=== PATIENT | female | born 1955 | race Caucasian/White ===

== ENCOUNTER 2022-03-07 06:57 | Day surgery (SDC) | payer MEDICARE, OTHER ==
[~2022-03-07] VITALS: Ht 147.3 cm; Wt 57.6 kg
[~2022-03-07 06:57] MED LIST: STELARA SC
[2022-03-07 08:53] VITALS: BP 108/72
== END 2022-03-07 09:04 | disposition home or self-care (01) ==
LOC: ENDO 06:57 → ORM 08:00 → ENDO 09:04
PROVIDERS: ATTEND Internal Medicine Gastroenterology
PROC: 0DB98ZX Excision of Duodenum, Via Natural or Artificial Opening Endoscopic, Diagnostic (ICD-10-PCS; principal; 2022-03-07)
PROC: 0DB78ZX Excision of Stomach, Pylorus, Via Natural or Artificial Opening Endoscopic, Diagnostic (ICD-10-PCS; 2022-03-07)
PROC: 0DBK8ZX Excision of Ascending Colon, Via Natural or Artificial Opening Endoscopic, Diagnostic (ICD-10-PCS; 2022-03-07)
PROC: 0DBL8ZX Excision of Transverse Colon, Via Natural or Artificial Opening Endoscopic, Diagnostic (ICD-10-PCS; 2022-03-07)
PROC: 0DBN8ZX Excision of Sigmoid Colon, Via Natural or Artificial Opening Endoscopic, Diagnostic (ICD-10-PCS; 2022-03-07)
PROC: 0DBP8ZX Excision of Rectum, Via Natural or Artificial Opening Endoscopic, Diagnostic (ICD-10-PCS; 2022-03-07)
PROC: 0DBM8ZX Excision of Descending Colon, Via Natural or Artificial Opening Endoscopic, Diagnostic (ICD-10-PCS; 2022-03-07)
PROC: 0DBH8ZX Excision of Cecum, Via Natural or Artificial Opening Endoscopic, Diagnostic (ICD-10-PCS; 2022-03-07)
DX: K50.10 Crohn's disease of large intestine without complications (principal); K63.5 Polyp of colon; K29.50 Unspecified chronic gastritis without bleeding; R76.8 Other specified abnormal immunological findings in serum; Z79.899 Other long term (current) drug therapy; Z90.49 Acquired absence of other specified parts of digestive tract

== ENCOUNTER 2022-06-02 11:45 | Inpatient (IN) | payer MEDICARE, OTHER ==
[2022-06-02] VITALS (18 sets, daily range): BP systolic 101–124; BP diastolic 53–70
[~2022-06-02] VITALS: Ht 147.3 cm; Wt 58.0 kg
[2022-06-02 14:18] LABS: BASO% 0.2 % (0-3); EOS% 2.3 % (0-8); HEMOGLOBIN 14.1 g/dl (12.0-16.0); IMMATURE GRANULOCYTES 0.5 % (0.0-5.0); LYMPH% 19.7 % (15-41); MEAN CELL VOLUME 92.9 fL CALC (80.0-100.0); MEAN CORPUSCULAR HGB 31.2 pG CALC (26.0-32.0); MEAN CORPUSCULAR HGB CONC 33.6 g/dL CAL (32.0-36.0); MONO% 8.3 % (2-13); NEUT# 3.01 thou/uL (2.00-7.15); RED BLOOD COUNT 4.52 mill/uL (4.20-5.60)
[2022-06-02 14:24] LABS: ALBUMIN 3.8 g/dL (3.2-5.0); ALKALINE PHOSPHATASE 90 u/l (38-126); ANION GAP 9 (6-22 (CALC)); BILIRUBIN, TOTAL 0.6 mg/dL (0.0-1.4); BUN 13 mg/dL (8-23); BUN/CREATININE RATIO 18 (12-20 (CALC)); CARBON DIOXIDE 24 mmol/l (22-30); CHLORIDE 110 mmol/l (95-108); CREATININE 0.7 mg/dL (0.5-1.0); GFR FOR AFR.AMER. > 60 ML/MIN (>=60 (CALC)); GFR OTHER RACES > 60 ML/MIN (>=60 (CALC)); LIPASE 112 u/l (23-300); SGOT/AST 25 u/l (9-36); SODIUM 138 mmol/l (137-146); TOTAL PROTEIN 6.9 g/dL (6.3-8.2)
[2022-06-02 16:46] LABS: URINE BILIRUBIN - DIPSTICK NEGATIVE (NEGATIVE); URINE BLOOD DIPSTICK TRACE-INTACT (NEGATIVE); URINE COLOR YELLOW; URINE GLUCOSE - DIPSTICK NEGATIVE (NEGATIVE); URINE KETONE NEGATIVE (NEGATIVE); URINE LEUK ESTERASE NEGATIVE (NEGATIVE); URINE PH 5.5 (4.5-8.0); URINE PROTEIN - DIPSTICK NEGATIVE (NEG-TRACE); URINE SPECIFIC GRAVITY <=1.005; URINE UROBILINOGEN - DIPSTICK 0.2 E.U./dL (0.2)
[2022-06-02 16:52] LABS: URINE NITRITE - DIPSTICK NEGATIVE (Negative)
[2022-06-03] VITALS (7 sets, daily range): BP systolic 98–116; BP diastolic 52–68
[2022-06-03 09:31] LABS: BASO% 0.2 % (0-3); HEMATOCRIT 43.6 % (37.0-47.0); HEMOGLOBIN 14.5 g/dl (12.0-16.0); IMMATURE GRANULOCYTES 0.4 % (0.0-5.0); LYMPH% 11.5 % (15-41); MEAN CELL VOLUME 95.2 fL CALC (80.0-100.0); MEAN CORPUSCULAR HGB 31.7 pG CALC (26.0-32.0); MEAN CORPUSCULAR HGB CONC 33.3 g/dL CAL (32.0-36.0); MONO% 1.1 % (2-13); NEUT# 4.75 thou/uL (2.00-7.15); NEUT% 86.8 % (42-76); RED BLOOD COUNT 4.58 mill/uL (4.20-5.60); RED CELL DISTRI WIDTH 12.7 % (11.5-15.5)
[2022-06-03 09:56] LABS: ALBUMIN 3.9 g/dL (3.2-5.0); ALKALINE PHOSPHATASE 96 u/l (38-126); ANION GAP 13 (6-22 (CALC)); BUN 11 mg/dL (8-23); BUN/CREATININE RATIO 14 (12-20 (CALC)); CARBON DIOXIDE 20 mmol/l (22-30); CHLORIDE 110 mmol/l (95-108); CREATININE 0.7 mg/dL (0.5-1.0); GFR FOR AFR.AMER. > 60 ML/MIN (>=60 (CALC)); GFR OTHER RACES > 60 ML/MIN (>=60 (CALC)); POTASSIUM 4.4 mmol/l (3.5-5.1); SGOT/AST 30 u/l (9-36); SODIUM 139 mmol/l (137-146); TOTAL PROTEIN 6.9 g/dL (6.3-8.2)
[2022-06-03 10:05] LABS: BILIRUBIN, TOTAL 1.1 mg/dL (0.0-1.4)
[2022-06-04] VITALS (9 sets, daily range): BP systolic 97–119; BP diastolic 48–65
[2022-06-05 04:00] VITALS: BP 121/55
[2022-06-05 04:23] VITALS: BP 121/55
[2022-06-05 06:46] VITALS: BP 105/61
[2022-06-05 15:50] VITALS: BP 113/51
[2022-06-05 19:11] VITALS: BP 113/54
[2022-06-06 04:13] VITALS: BP 117/60
[2022-06-06 06:10] LABS: IMMATURE GRANULOCYTES 1.1 % (0.0-5.0); LYMPH% 6.5 % (15-41); MEAN CORPUSCULAR HGB 31.3 pG CALC (26.0-32.0); MEAN CORPUSCULAR HGB CONC 33.6 g/dL CAL (32.0-36.0); MONO% 3.4 % (2-13); NEUT# 4.94 thou/uL (2.00-7.15); RED BLOOD COUNT 3.45 mill/uL (4.20-5.60); RED CELL DISTRI WIDTH 13.1 % (11.5-15.5)
[2022-06-06 06:13] LABS: HEMATOCRIT 32.1 % (37.0-47.0); HEMOGLOBIN 10.8 g/dl (12.0-16.0)
[2022-06-06 06:23] LABS: ANION GAP 6 (6-22 (CALC)); BUN 10 mg/dL (8-23); BUN/CREATININE RATIO 15 (12-20 (CALC)); CARBON DIOXIDE 23 mmol/l (22-30); CHLORIDE 112 mmol/l (95-108); CREATININE 0.7 mg/dL (0.5-1.0); GFR FOR AFR.AMER. > 60 ML/MIN (>=60 (CALC)); GFR OTHER RACES > 60 ML/MIN (>=60 (CALC)); SODIUM 137 mmol/l (137-146)
[2022-06-06 06:32] VITALS: BP 117/60
[2022-06-06] MEDS ORDERED: TRAMADOL HCL50 MG PO (14:12)
[2022-06-06] MEDS ORDERED: PERCOCET 5/321 COMBO PO (14:18)
== END 2022-06-06 15:32 | disposition home or self-care (01) | DRG 415 ==
LOC: ED 11:45 → MS2 18:16
PROVIDERS: Emergency Medicine; Nurse Practitioner Family; ADMIT Internal Medicine; ATTEND Surgery
PROC: 0FT40ZZ Resection of Gallbladder, Open Approach (ICD-10-PCS; principal; 2022-06-04)
PROC: 0FJ44ZZ Inspection of Gallbladder, Percutaneous Endoscopic Approach (ICD-10-PCS; 2022-06-04)
PROC: 0DN80ZZ Release Small Intestine, Open Approach (ICD-10-PCS; 2022-06-04)
PROC: 0DNU0ZZ Release Omentum, Open Approach (ICD-10-PCS; 2022-06-04)
DX: K80.00 Calculus of gallbladder with acute cholecystitis without obstruction (principal); K50.10 Crohn's disease of large intestine without complications; K66.0 Peritoneal adhesions (postprocedural) (postinfection); K43.2 Incisional hernia without obstruction or gangrene; Z20.822 Contact with and (suspected) exposure to COVID-19
CPT/HCPCS: J0131; J1100; Q9967

== ENCOUNTER 2024-02-26 07:15 | Day surgery (SDC) | payer MEDICARE, OTHER ==
[~2024-02-26 07:15] MED LIST changes: +ACETAMINOPHEN325 MG PO; +PERCOCET 5/321 COMBO PO; +PROTONIX40 M2 PO; +TRAMADOL HCL50 MG PO
[2024-02-26] MEDS ORDERED: LACTATED RINGER'S 1,000 ML IV ONE (07:23)
[2024-02-26 09:08] VITALS: BP 123/78
[2024-02-26] MEDS ORDERED: LIDOCAINE HCL 2% 2ML SDV IV ONE (14:33)
[2024-02-26] MEDS ORDERED: PROPOFOL 200 MG/20 ML VIAL IV ONE (14:33)
[2024-02-26] MEDS ORDERED: GLYCOPYRROLATE 0.2 MG/ML IV ONE (14:33)
== END 2024-02-26 09:34 | disposition home or self-care (01) ==
LOC: ENDO 07:15 → ORM 10:00
PROVIDERS: ATTEND Internal Medicine Gastroenterology
PROC: 0DBE8ZX Excision of Large Intestine, Via Natural or Artificial Opening Endoscopic, Diagnostic (ICD-10-PCS; principal; 2024-02-26)
DX: K50.10 Crohn's disease of large intestine without complications (principal); K64.8 Other hemorrhoids; Z79.899 Other long term (current) drug therapy